=== PATIENT | female | born 2000 | race Caucasian/White ===

== ENCOUNTER 2022-11-18 12:50 | Inpatient (IN) | payer MEDICAID ==
[~2022-11-18] VITALS: Ht 167.6 cm; Wt 56.4 kg
[2022-11-18 16:49] VITALS: BP 135/66; PULSE 52; RESP 16; TEMP 99.5; O2SAT 99
[2022-11-18] MEDS ORDERED: loperamide 2mg capsule PO PRN (17:25)
[2022-11-18] MEDS ORDERED: magnesium hydroxide 30ml (MOM) UD suspension PO PRN (17:25)
[2022-11-18] MEDS ORDERED: mag hydrox/Alum hydrox/simeth 30ml oral suspension PO PRN (17:25)
[2022-11-18] MEDS ORDERED: acetaminophen 325mg tablet PO PRN ×2 (17:25)
[2022-11-18 17:44] VITALS: RESP 16; O2SAT 99
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
[2022-11-18] MEDS ORDERED: NO HOME MEDS (18:51)
[2022-11-18 19:11] VITALS: BP 113/67; PULSE 64; RESP 16; TEMP 98.8; O2SAT 100
[2022-11-18 19:16] VITALS: RESP 16; O2SAT 100
[2022-11-18] MEDS ORDERED: clindamycin 150mg capsule PO ONE (20:15)
[2022-11-18] MEDS: NICOTINE POLACRILEX 2 MG LOZENGE BC PRN (21:08)
[2022-11-19 07:00] VITALS: RESP 16; O2SAT 99
[2022-11-19 08:00] VITALS: BP 109/65; PULSE 60; RESP 16; TEMP 98.5; O2SAT 99
[2022-11-19] MEDS: nicotine 21mg patch - 24 hr TD SCH (08:39)
[2022-11-19 09:35] LABS: HEMOGLOBIN A1C 5.1 % (4.5-6.2)
--- NOTE | 2022-11-19 12:36 | NUR ---
WOC note: Plan to see patient Friday, needs evaluation by MD and to be stabilized, she arrived last night per RN note. No open sores or urgent skin conditions reported.
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
[2022-11-19 19:00] VITALS: RESP 16; O2SAT 98
[2022-11-19 19:34] VITALS: BP 114/78; PULSE 84; RESP 16; TEMP 98.1; O2SAT 98
[2022-11-20] MEDS: NICOTINE POLACRILEX 2 MG LOZENGE BC PRN ×2 (00:18→22:07)
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
[2022-11-20 07:00] VITALS: RESP 14; O2SAT 96
[2022-11-20 08:00] VITALS: BP 106/60; PULSE 50; RESP 14; TEMP 98.5; O2SAT 96
[2022-11-20] MEDS: nicotine 21mg patch - 24 hr TD SCH (08:35)
[2022-11-20 09:18] LABS: BASOPHILS # (AUTO) 0.1 X10'3 (0-0.2); BASOPHILS % (AUTO) 1.1 % (0-1); EOSINOPHILS # (AUTO) 0.2 X10'3 (0-0.9); EOSINOPHILS % (AUTO) 2.2 % (0-6); HEMATOCRIT 43.1 % (35.0-45.0); HEMOGLOBIN 14.4 g/dl (12.0-16.0); LYMPHOCYTES # (AUTO) 1.7 X10'3 (1.1-4.8); LYMPHOCYTES % (AUTO) 24.9 % (21-51); MEAN CORPUSCULAR HEMOGLOBIN 31.3 PG (27.0-31.0); MEAN CORPUSCULAR HGB CONC 33.3 g/dL (33.0-36.5); MEAN CORPUSCULAR VOLUME 93.8 FL (78-98); MEAN PLATELET VOLUME 8.2 FL (7.4-10.4); MONOCYTES # (AUTO) 0.3 X10'3 (0-0.9); MONOCYTES % (AUTO) 4.7 % (2-12); NEUTROPHILS # (AUTO) 4.6 X10'3 (1.8-7.7); NEUTROPHILS % (AUTO) 67.1 % (42-75); PLATELET COUNT 227 X10'3 (140-440); RED CELL DISTRIBUTION WIDTH 14.5 % (11.5-14.5); WHITE BLOOD COUNT 6.9 X10'3 (4.5-11.0)
[2022-11-20 09:22] LABS: ALANINE AMINOTRANSFERASE 48 U/L (12-78); ALBUMIN/GLOBULIN RATIO 1.3 (1.1-1.5); ALKALINE PHOSPHATASE 47 IU/L (46-116); ANION GAP 8 (8-16); ASPARTATE AMINO TRANSFERASE 77 U/L (10-37); BILIRUBIN,TOTAL 0.4 MG/DL (0.1-1.0); BLOOD UREA NITROGEN 12 MG/DL (7-18); BUN/CREATININE RATIO 14.6 (10.0-20.0); CALCIUM 9.4 MG/DL (8.5-10.1); CHLORIDE 104 MMOL/L (99-107); CREATININE 0.82 MG/DL (0.40-0.90); GLUCOSE 112 MG/DL (70-104); POTASSIUM 3.7 MMOL/L (3.5-5.1); SODIUM 139 MMOL/L (135-145); eGFR 86 ML/MIN
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
[2022-11-20 19:00] VITALS: RESP 16; O2SAT 100
[2022-11-20 20:13] VITALS: BP 111/64; PULSE 58; RESP 16; TEMP 98.2; O2SAT 100
[2022-11-20] MEDS ORDERED: triamcinolone acet 0.1% cream 15gm TP SCH (21:14)
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
[2022-11-21 07:00] VITALS: RESP 14; O2SAT 96
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
[2022-11-21] MEDS: nicotine 21mg patch - 24 hr TD SCH (08:04)
[2022-11-21 08:54] VITALS: BP 120/62; PULSE 56; RESP 16; TEMP 97.6; O2SAT 99
[2022-11-21] MEDS: NICOTINE POLACRILEX 2 MG LOZENGE BC PRN (13:28)
== END 2022-11-21 17:27 | disposition home or self-care (01) | DRG 760 ==
LOC: ADULT MH 17:06
PROVIDERS: ADMIT Psychiatry & Neurology Psychiatry; ATTEND Psychiatry & Neurology Psychiatry
DX: F22 Delusional disorders (principal); F12.10 Cannabis abuse, uncomplicated; F17.210 Nicotine dependence, cigarettes, uncomplicated; J45.909 Unspecified asthma, uncomplicated; Z56.0 Unemployment, unspecified; T40.711A Poisoning by cannabis, accidental (unintentional), initial encounter
CPT/HCPCS: 36415; 80053; 83036; 84145; 84443; 85025; 85651; 87081; A6250; A6449